=== PATIENT | female | born 1990 | race Caucasian/White ===

== ENCOUNTER 2016-08-26 17:52 | Emergency (ER) | payer MEDICAID ==
[2016-08-26] MEDS ORDERED: KETOROLAC 30 MG/ML VIAL ONE (20:26)
[2016-08-26] MEDS ORDERED: ONDANSETRON 4 MG VIAL ONE (20:26)
[2016-08-26] MEDS ORDERED: SODIUM CHLORIDE 0.9% 1,000 ML ONE (20:27)
== END 2016-08-26 22:19 | disposition home or self-care (01) ==
LOC: ER 17:52
DX: R10.11 Right upper quadrant pain (principal); R30.0 Dysuria; J18.1 Lobar pneumonia, unspecified organism; E11.9 Type 2 diabetes mellitus without complications; E03.9 Hypothyroidism, unspecified; I10 Essential (primary) hypertension; E78.00 Pure hypercholesterolemia, unspecified; J45.909 Unspecified asthma, uncomplicated; F84.0 Autistic disorder; F17.200 Nicotine dependence, unspecified, uncomplicated
CPT/HCPCS: 36415; 74176; 80053; 81001; 81025; 83690; 85025; 96361; 96374; 96375